=== PATIENT | male | born 1980 | race Caucasian/White ===

== ENCOUNTER 2017-09-11 11:23 | Emergency (ER) | payer OTHER ==
[~2017-09-11] VITALS: Ht 167.6 cm; Wt 80.0 kg
[2017-09-11 11:24] VITALS: BP 121/71; PULSE 102; RESP 14; TEMP 99.5; O2SAT 96
--- NOTE | 2017-09-11 13:09 | PD ---
HPI . Sore throat and cough x one day Chief Complaint: Cold / Flu Symptoms Time Seen by Provider: 11:54 Travel History International Travel<30 days: No Contact w/Intl Traveler<30days: No Traveled to known affect area: No History of Present Illness HPI 37-year-old male patient presents emergency department for evaluation of sore throat and cough times one day. Patient states he does not believe these been running fevers but he has been taking ibuprofen for pain management. Patient denies any ear pain, chest pain, shortness breath, abdominal pain, nausea, vomiting, diarrhea or lightheadedness. Patient's cough is intermittent, dry and hacking in nature. Patient denies any major medical history he does not take any daily medication. 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 PFSH Past Medical History Medical History: Denies Significant Hx Social History Alcohol Use: Yes (OCC) Tobacco Use: No Substance Use: No Allergies-Medications Reported Meds & Prescriptions Reported Meds & Active Scripts Active No Active Prescriptions or Reported Medications Review of Systems Except as stated in HPI: all other systems reviewed are Neg HENT: Positive: Sore Throat Physical Exam Narrative GENERAL: Well-nourished, well-developed 37-year-old male patient in no acute distress. Nontoxic appearing. SKIN: Focused skin assessment warm/dry. HEAD: Normocephalic. Atraumatic. EYES: No scleral icterus. No injection or drainage. EARS: Bilateral pinnae and external canals appear within normal limits. Bilateral tympanic membranes without erythema, dullness or perforation. THROAT: Mild pharyngeal injection with small exudate noted and mild tonsillar hypertrophy. Airway is patent. NECK: Supple, trachea midline. No JVD or lymphadenopathy. CARDIOVASCULAR: Regular rate and rhythm without murmurs, gallops, or rubs. RESPIRATORY: Breath sounds equal bilaterally. No accessory muscle use. GASTROINTESTINAL: Abdomen soft, non-tender, nondistended. MUSCULOSKELETAL: No cyanosis, or edema. Data Data Last Documented VS Vital Signs Date Time Temp Pulse Resp B/P (MAP) Pulse Ox O2 Delivery O2 Flow Rate FiO2 09/11/17 11:24 99.5 102 14 121/71 (88) 96 Orders Orders Group A Rapid Strep Screen (09/11/17 12:02) Influenzae A/B Antigen (09/11/17 12:02) Strep Culture (Group A) (09/11/17 12:15) MDM Medical Decision Making Medical Screen Exam Complete: Yes Emergency Medical Condition: Yes Differential Diagnosis Differential diagnoses include but not limited to URI, influenza, pharyngitis Narrative Course 37-year-old male patient presents emergency department for evaluation of sore throat and cough. Rapid strep ordered and pending. Influenza ordered and pending. Both rapid strep and influenza are negative. Patient discharged home with supportive care instructions and to return to the emergency Department with any worsening condition but otherwise follow up with primary care. Diagnosis Primary Impression: Upper respiratory infection Qualified Codes: J06.9 - Acute upper respiratory infection, unspecified Referrals: Primary Care Physician Patient Instructions: General Instructions, Upper Respiratory Infection (ED) Additional Instructions: Please return to emergency department if your symptoms return or worsen. Follow up with your primary care provider. May take ibuprofen or Tylenol as needed for pain or fever. Supportive care, stay hydrated, get enough rest, diet as tolerated. Scripts No Active Prescriptions or Reported Meds Disposition: 01 DISCHARGE HOME Condition: Stable Eleonora Hatfield Sep 11, 2017 13:09
== END 2017-09-11 14:35 | disposition home or self-care (01) ==
LOC: NEPK 11:23
DX: J06.9 Acute upper respiratory infection, unspecified (principal)
CPT/HCPCS: 87081; 87804; 87880; 99283